=== PATIENT | female | born 1990 | race African-American/Black ===

== ENCOUNTER 2017-09-06 07:24 | Emergency (ER) | payer BC | END 2017-09-06 08:02 | disposition home or self-care (01) | LOC: MADERS 07:24 | DX: M19.141 Post-traumatic osteoarthritis, right hand (principal); F17.210 Nicotine dependence, cigarettes, uncomplicated | CPT/HCPCS: 29125 ==

== ENCOUNTER 2018-03-04 17:02 | Emergency (ER) | payer BC, OTHER | END 2018-03-04 18:03 | disposition home or self-care (01) | LOC: MADERS 17:02 | DX: J06.9 Acute upper respiratory infection, unspecified (principal) | CPT/HCPCS: 99283 ==